=== PATIENT | female | born 1955 | race Caucasian/White ===

== ENCOUNTER 2020-05-12 10:14 | Emergency (ER) | payer OTHER, SELFPAY ==
--- NOTE | ~2020-05-12 | XR_ITS ---
EXAMINATION: XR chest 1V portable DATE: 05/12/2020 11:29 INDICATION: Shortness of breath. TECHNIQUE: A single frontal view of the chest was obtained. COMPARISON: Chest 2 views 09/22/2008 FINDINGS: There are mild airspace opacities in the mid and lower lung zones. No pleural effusion or p neumothorax. The heart size is normal. IMPRESSION: 1. Mild airspace opacities in the mid and lower lung zones, consistent with pulmonary edema versus pn eumonia. Reviewed, dictated and finalized at location A. IMPRESSION: 1. Mild airspace opacities in the mid and lower lung zones, consistent with pul monary edema versus pneumonia.
[2020-05-12 10:15] VITALS: BP 139/63; PULSE 70; RESP 20; TEMP 37.2; O2SAT 97
--- NOTE | 2020-05-12 10:29 | ED.GENADULT ---
HPI - General Adult General Chief complaint: Weakness <JENNIFER Enrique Last Filed: 05/12/20 12:25> Stated complaint: weakness- covid + <JENNIFER Enrique Last Filed: 05/12/20 12:25> Time Seen by Provider: 05/12/20 10:16 <JENNIFER Enrique Last Filed: 05/12/20 12:25> Source: patient <JENNIFER Enrique Last Filed: 05/12/20 12:25> Mode of arrival: EMS <JENNIFER Enrique Last Filed: 05/12/20 12:25> Limitations: no limitations <JENNIFER Enrique Last Filed: 05/12/20 12:25> History of Present Illness HPI narrative: Patient is a 64-year-old female who presents with positive COVID diagnosis with symptoms of congestion rhinorrhea productive cough of phlegm and diarrhea and vomiting. Patient notes history of depression takes no other medications patient has not been taking anything for her symptoms patient lives at home by herself. Patient know she contacted the illness from her niece who she had dinner with prior Friday. Patient on arrival per EMS is in the room is in no distress does not appear uncomfortable and is mildly ill-appearing. <JENNIFER Enrique Last Filed: 05/12/20 12:25> Related Data Home medications: Home Medications Medication Instructions Recorded Confirmed escitalopram oxalate 10 mg PO DAILY 05/12/20 05/12/20 pantoprazole 40 mg PO DAILY 05/12/20 05/12/20 trazodone 100 mg PO DAILY 05/12/20 05/12/20 <JENNIFER Enrique Last Filed: 05/12/20 12:25> Allergies/adverse reactions: Allergies Allergy/AdvReac Type Severity Reaction Status Date / Time No Known Allergies Allergy Verified 05/12/20 10:43 <JENNIFER Enrique Last Filed: 05/12/20 12:25> Review of Systems Review of Systems: All systems reviewed & are unremarkable except as noted in HPI and below <JENNIFER Enrique Last Filed: 05/12/20 12:25> PMFSH Past Medical History Medical History: Medical History (Updated 05/12/20 @ 12:23 by Forrest Padron PA-C) Depression <Forrest Padron PA-C - Last Filed: 05/12/20 12:25> Social History Social History: Social History Smoking status: Never smoker Alcohol intake: never <Forrest Padron PA-C - Last Filed: 05/12/20 12:25> Exam Narrative: Exam Narrative: GENERAL: Well-appearing, morbidly obese, and in no acute distress. HEAD: Normocephalic, atraumatic. EYES: PERRLA and EOMI. ENT: Nares clear, no rhinorrhea or epistaxis. Mucous membranes moist. Oropharynx without tonsillar hypertrophy exudate or other lesions. NECK: Supple. No adenopathy or masses. CHEST: Clear to auscultation. No respiratory distress. No wheezes rales or rhonchi HEART: Regular rate and rhythm. No murmur heard. Normal peripheral pulses. ABDOMEN: Soft, nontender, nondistended EXTREMITIES: Normal range of motion. No edema. SKIN: Warm, dry, no rash. NEURO: No focal deficits. Alert and oriented x3. PSYCH: Normal mood and affect. <Forrest Padron PA-C - Last Filed: 05/12/20 12:25> Course Course Emergency Course: Patient in the room in no distress aware of case findings treatment plan and diagnosis resting comfortably in the room felt appropriate for outpatient reevaluation patient with normal vital signs no hypoxemia patient aware of discussion with primary care and will follow with primary care patient at this time will be discharged home given reasons to return will be treated symptomatically with follow-up with primary care. Patient was hydrated in the emergency department and given medications <Forrest Padron PA-C - Last Filed: 05/12/20 12:25> Consultations Consultation #1: Spoke with Dr. Lopez who will follow the patient outpatient does not recommend antibiotics and recommends treating the patient symptomatically <JENNIFER Enrique Last Filed: 05/12/20 12:25> Date: 05/12/20 <JESUSITA Enrique
[2020-05-12] MEDS: ONDANSETRON INJ 4 MG/2 ML VIAL IV PUSH (10:45)
[2020-05-12] MEDS: SODIUM CHLORIDE 0.9% IV 1,000 ML 999 ML IV CONT (10:45)
[2020-05-12] MEDS: FAMOTIDINE 20 MG/2 ML VIAL IV PUSH (10:45)
[2020-05-12 10:53] LABS: Basophils Percent Auto 0.3 % (0.2-1.2); Immature Granulocyte Absolute 0.01 K/mm3 (0.00-0.031); Immature Granulocyte Percent A 0.3 % (0-0.5); Lymphocytes Absolute Auto 0.52 K/mm3 (0.9-3.2); Lymphocytes Percent Auto 17.6 % (18.3-44.2); Mean Corpuscular HGB Conc 32.4 g/dl (32-36); Mean Corpuscular Volume 89.4 fl (80-100); Mean Platelet Volume 9.8 fl (7.4-10.4); Monocytes Absolute Auto 0.2 K/mm3 (0.1-0.6); Monocytes Percent Auto 7.4 % (2.6-8.5); Neutrophils Absolute Auto 2.2 K/mm3 (1.3-6.7); Neutrophils Percent Auto 74.4 % (45.5-73.1); Platelet Count Result 112 k/mm3 (150-375); Red Blood Count 4.14 M/mm3 (4.2-5.4)
[2020-05-12 11:02] LABS: Prothrombin Time 13.2 Seconds (11.1-14.7)
[2020-05-12 11:03] LABS: Partial Thromboplastin Time 50.7 SECONDS (22.3-36.8)
[2020-05-12 11:05] LABS: Lactic Acid Reflex 1.8 mmol/L (0.7-2.1)
[2020-05-12 11:07] LABS: Alanine Aminotransferase 27 U/L (4-35); Albumin Level 3.6 g/dL (3.5-5.1); Alkaline Phosphatase 53 U/L (38-126); Anion Gap 9 mmol/L (8-16); Aspartate Amino Transferase 43 U/L (14-36); Bilirubin,Total 0.6 mg/dL (0.2-1.3); Blood Urea Nitrogen 9 mg/dL (7-17); CRP 5.7 mg/dL (<1.0); Calcium 7.9 mg/dL (8.4-10.2); Carbon Dioxide 26 mmol/L (22-30); Chloride 102 mmol/L (98-107); Estimated Glomerular Filt Rate 50; Glucose 125 mg/dL (65-105); Potassium 3.9 mmol/L (3.4-5.0); Sodium 137 mmol/L (137-145)
[2020-05-12 11:33] VITALS: BP 143/69; PULSE 67; RESP 20; O2SAT 96
[2020-05-12 12:21] VITALS: BP 143/63; PULSE 70; RESP 20; O2SAT 96
[2020-05-12 13:29] VITALS: BP 149/56; PULSE 70; RESP 20; O2SAT 97
== END 2020-05-12 13:31 | disposition home or self-care (01) ==
PROVIDERS: Emergency Medicine Emergency Medical Services; Emergency Provider Emergency Medicine; PCP Family Medicine Adolescent Medicine
DX: U07.1 COVID-19 (principal); F32.9 Major depressive disorder, single episode, unspecified
CPT/HCPCS: 36415; 71045; 80053; 83605; 85025; 85610; 85730; 86140; 87040; 96361; 96374; 96375; 99284; J2405; J7030

== ENCOUNTER → 2020-08-17 13:45 | Outpatient (CLI) | payer MEDICARE, SELFPAY ==
--- NOTE | ~2020-08-17 | MM_ITS ---
EXAMINATION: MM screening [facility] BI w jeny HISTORY: Screening mammogram TECHNIQUE: Craniocaudal and mediolateral oblique 3-D tomosynthesis images were obtained and synthetic 2-D images were generated. CAD analysis was submitted and interpreted. COMPARISON: 05/24/2017, 11/02/2012, 10/21/2011 BREAST PARENCHYMAL COMPOSITION: The breasts are almost entirely fatty. FINDINGS: There is no evidence of suspicious mass, calcification, or architectural distortion to sugg est malignancy in either breast. There has been no suspicious interval change. IMPRESSION: 1. No mammographic evidence of malignancy. 2. Recommend routine screening mammography in one year. BI-RADS Category 1: Negative Reviewed, dictated and finalized at location A. 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
== END ==
PROVIDERS: PCP Family Medicine Adolescent Medicine; Visit Provider Family Medicine Adolescent Medicine
DX: Z12.31 Encounter for screening mammogram for malignant neoplasm of breast (principal)
CPT/HCPCS: 77063; 77067

== ENCOUNTER → 2020-12-28 10:03 | Outpatient (CLI) | payer MEDICARE, SELFPAY ==
--- NOTE | ~2020-12-28 | XR_ITS ---
XR chest 2V DATE: 12/28/2020 11:18 INDICATION: Shortness of breath TECHNIQUE: 2 views COMPARISON: 05/12/2020 portable AP chest FINDINGS: Normal heart size. No hilar or mediastinal enlargement. Aortic arch calcification. No pulmonary infiltrate or consolidation, pleural effusion or pulmonary vascular congestion or pneumo thorax. Diffuse osteopenia. IMPRESSION: No active cardiopulmonary disease Reviewed, dictated and finalized at location B.
== END ==
PROVIDERS: Visit Provider Physician Assistant
DX: R06.02 Shortness of breath (principal)
CPT/HCPCS: 71046

== ENCOUNTER 2021-01-31 12:31 | Outpatient (CLI) | payer MEDICARE, SELFPAY ==
--- NOTE | 2021-01-31 16:13 | P.PCNPFT_ITS ---
PFT Procedure Performed PFT Procedure Performed Spirometry with Pre/Post Bronchodilator Plethysmography (Lung Vol) Diffusing Cap (DLCO) Flow Vol Loop PFT Interpretation This is a pulmonary function test with pre and post-bronchodilator spirometry, plethysmography and diffusing capacity. The test was performed and results interpreted in accordance with the 2019 and 2005 ATS/ERS Task Force guidelines respectively using the Global Lung Function Initiative-2012 reference equations. Patient demonstrated good effort and cooperation. Reproducibility criteria were met. The quality of the pre bronchodilator spirometry maneuver was Grade A and post bronchodilator spirometry maneuver was Grade A. Findings: Spirometry: The contour the inspiratory and expiratory flow tracing are normal. The pre bronchodilator FVC is 2.54 L, 84% predicted. The pre bronchodilator FEV1 is 2.05 L, 87% predicted. The FEV1: FVC ratio was 81%. The post bronchodilator FVC is 2.61 L, representing a 3% increase. The post bronchodilator FEV1 is 2.18 L, representing a 6% increase. Plethysmography: The total lung capacity is 3.52 L, 69% predicted. Functional residual capacity is 1.24 L, 43% predicted. The residual volume is 0.92 L, 44% predicted. Diffusing capacity: The absolute diffusion capacity is 12.2, 58% predicted. T he diffusing capacity corrected for alveolar volume is 3.59, 82% predicted. Impression: There is a mild severe restrictive ventilatory abnormality with a normal FEV1. The spirometry is normal without evidence of an obstructive abnormality. There is no significant improvement after inhaling a single dose of albuterol. The absolute diffusing capacity is moderately decreased and normalizes when corrected for alveolar volume. There are no prior studies for comparison
== END 2021-01-31 12:32 | disposition home or self-care (01) ==
LOC: ANHPFT 12:35
PROVIDERS: Visit Provider Family Medicine Adolescent Medicine
DX: R06.02 Shortness of breath (principal); R94.2 Abnormal results of pulmonary function studies
CPT/HCPCS: 94060; 94726; 94729

== ENCOUNTER → 2021-12-04 12:13 | Outpatient (CLI) | payer MEDICARE, SELFPAY ==
--- NOTE | ~2021-12-04 | MM_ITS ---
EXAMINATION: MM screening [facility] BI w jeny HISTORY: Screening TECHNIQUE: Craniocaudal and mediolateral oblique 3-D tomosynthesis images were obtained and synthetic 2-D images were generated. CAD analysis was submitted and interpreted. COMPARISON: Comparison to multiple prior studies sequentially, with oldest reviewed study dated 11/02. BREAST PARENCHYMAL COMPOSITION: The breasts are almost entirely fatty. FINDINGS: There is no evidence of suspicious mass, calcification, or architectural distortion to sugg est malignancy in either breast. There has been no suspicious interval change. IMPRESSION: 1. No mammographic evidence of malignancy. 2. Recommend routine screening mammography in one year. BI-RADS Category 1: Negative Reviewed, dictated and finalized at location A.
== END ==
PROVIDERS: PCP Family Medicine Adolescent Medicine; Visit Provider Family Medicine Adolescent Medicine
DX: Z12.31 Encounter for screening mammogram for malignant neoplasm of breast (principal)
CPT/HCPCS: 77063; 77067

== ENCOUNTER → 2023-02-28 15:58 | Outpatient (CLI) | payer MEDICARE, SELFPAY ==
--- NOTE | ~2023-02-28 | MM_ITS ---
EXAMINATION: MM screening [facility] BI w jeny HISTORY: Screening TECHNIQUE: Craniocaudal and mediolateral oblique 3-D tomosynthesis images were obtained and synthetic 2-D images were generated. CAD analysis was submitted and interpreted. COMPARISON: Comparison to multiple prior studies sequentially, with oldest reviewed study dated 05/11. BREAST PARENCHYMAL COMPOSITION: The breasts are almost entirely fatty. FINDINGS: There is no evidence of suspicious mass, calcification, or architectural distortion to sugg est malignancy in either breast. There has been no suspicious interval change. IMPRESSION: 1. No mammographic evidence of malignancy. 2. Recommend routine screening mammography in one year. BI-RADS Category 1: Negative Reviewed, dictated and finalized at location A.
== END ==
PROVIDERS: PCP Family Medicine Adolescent Medicine; Visit Provider Family Medicine Adolescent Medicine
DX: Z12.31 Encounter for screening mammogram for malignant neoplasm of breast (principal)
CPT/HCPCS: 77063; 77067

== ENCOUNTER 2024-03-02 10:16 | Outpatient (CLI) | payer MEDICARE, SELFPAY ==
--- NOTE | ~2024-03-02 | MM_ITS ---
EXAMINATION: MM screening [facility] BI w jeny HISTORY: Screening TECHNIQUE: Craniocaudal and mediolateral oblique 3-D tomosynthesis images were obtained and synthetic 2-D images were generated. CAD analysis was submitted and interpreted. COMPARISON: Comparison to multiple prior studies sequentially, with oldest reviewed study dated 05/11. BREAST PARENCHYMAL COMPOSITION: Not Dense. The breasts are almost entirely fatty. FINDINGS: There is no evidence of suspicious mass, calcification, or architectural distortion to sugg est malignancy in either breast. There has been no suspicious interval change. IMPRESSION: 1. No mammographic evidence of malignancy. 2. Recommend routine screening mammography in one year. BI-RADS Category 1: Negative Reviewed, dictated and finalized at location B.
== END 2024-03-02 10:17 ==
LOC: MICIMG 10:17
PROVIDERS: PCP Family Medicine Adolescent Medicine; Visit Provider Family Medicine Adolescent Medicine
DX: Z12.31 Encounter for screening mammogram for malignant neoplasm of breast (principal)
CPT/HCPCS: 77063; 77067

== ENCOUNTER 2025-02-15 15:01 | Outpatient (CLI) | payer MEDICARE, SELFPAY ==
--- NOTE | ~2025-02-15 | DEXA_ITS ---
Bone Density Report Name: JAILENE HODGE Age: 69 Sex: Female Ethnicity: White Date of : 1955 Indication: postmenopausal; screening for osteoporosis; height loss; prior fracture; Referring Provider: DRAKE ANN Study: Bone densitometry was performed. Exam Date: February 15, 2025 Accession number: [id number] Bone Density: Region BMD T-score Z-score Classification AP Spine(L1-L4) 0.809 -2.2 -0.1 Osteopenia Femoral Neck (Left) 0.556 -2.6 -0.9 Osteoporosis Total Hip (Left) 0.734 -1.7 -0.2 Osteopenia Femoral Neck (Right) 0.537 -2.8 -1.0 Osteoporosis Total Hip (Right) 0.724 -1.8 -0.3 Osteopenia Total Hip Mean 0.729 -1.8 -0.3 Osteopenia World Health Organization criteria for BMD impression classify patients as: Normal (T-score at or above -1.0), Osteopenia (T-score between -1.0 and -2.5), or Osteoporosis (T-score at or below -2.5). 10-year Fracture Risk: FRAX not reported because: Some T-score for Spine Total or Hip Total or Femoral Neck at or below -2.5 Clinical Information Provided by Patient: Has had a low trauma fracture Has used the following medications: Vitamin D, Calcium Patient maximum height was 64 Menopause Age: 40 Does not regularly consume dairy products Drinks caffeinated beverages Onset of menses at age 16 Number of children 0 Missed period for more than 6 months in a row Impression: The patient has established osteoporosis, based on the Right Femoral Neck T-score and the existence of a prior fracture. The patient has risk factors, including: previous fracture. Discussion: HIGH RISK OF FRACTURE. BONE DENSITY IS UNDESIRABLY LOW AT ONE OR MORE SKELETAL SITES, CONSISTENT WITH POSTMENOPAUSAL OSTEOPOROSIS. This patient's lowest T-score, in a patient who has previously fractured, meets the World Health Organization's (WHO) criteria for severe osteoporosis. In untreated patients, the risk of osteoporotic fracture increases approximately two-fold for each 1.0 SD decrease in T-score. Low bone density is not the only risk factor for fracture; also consider factors such as patient's age, frailty or poor health, risk of falling, risk of injury, previous osteoporotic fracture, family history of osteoporosis, cigarette smoking, low body weight, etc. Not everyone with low bone mineral density has osteoporosis; osteomalacia and other metabolic bone disorders should also be considered. Patients who have osteoporosis should be evaluated for specific diseases and conditions (secondary causes) that may cause or contribute to bone loss. The [place] Association [employer] Endocrinologists (AACE) and National Osteoporosis Foundation (NOF) recommend pharmacologic intervention for all postmenopausal women whose T-score is in this range. The patient should follow a healthful lifestyle (good nutrition with adequate calcium and vitamin D, and appropriate weight-bearing exercise). Follow-Up: Consider a repeat BMD and Vertebral Fracture Assessment (VFA) exam in 2 years or sooner if medically necessary, to reassess this patient's status. Reported by: SARAH on 02/15/2025 3:35:00 PM. Reviewed, dictated and finalized at location A.
== END 2025-02-15 15:02 | disposition home or self-care (01) ==
LOC: MICIMG 15:03
PROVIDERS: PCP Family Medicine Adolescent Medicine; Visit Provider Family Medicine Adolescent Medicine
DX: Z78.0 Asymptomatic menopausal state (principal); M85.88 Other specified disorders of bone density and structure, other site; M81.0 Age-related osteoporosis without current pathological fracture; M85.852 Other specified disorders of bone density and structure, left thigh; M85.851 Other specified disorders of bone density and structure, right thigh
CPT/HCPCS: 77080

== ENCOUNTER 2025-03-03 14:17 | Outpatient (CLI) | payer MEDICARE, SELFPAY ==
--- NOTE | ~2025-03-03 | MM_ITS ---
EXAMINATION: MM screening [facility] BI w jeny HISTORY: Screening TECHNIQUE: Craniocaudal and mediolateral oblique 3-D tomosynthesis images were obtained and synthetic 2-D images were generated. CAD analysis was submitted and interpreted. COMPARISON: Comparison to multiple prior studies sequentially, with oldest reviewed study dated 2020. BREAST PARENCHYMAL COMPOSITION: The breasts are almost entirely fatty. FINDINGS: There is no evidence of suspicious mass, calcification, or architectural distortion to sug gest malignancy in either breast. Radiopaque auditor medical claims overlies and partially obscures the media l left breast. IMPRESSION: 1. No mammographic evidence of malignancy. 2. Recommend routine screening mammography in one year. BI-RADS Category 1: Negative Reviewed, dictated and finalized at location B.
== END 2025-03-03 14:18 | disposition home or self-care (01) ==
LOC: MICIMG 14:20
PROVIDERS: PCP Family Medicine Adolescent Medicine; Visit Provider Family Medicine Adolescent Medicine
DX: Z12.31 Encounter for screening mammogram for malignant neoplasm of breast (principal)
CPT/HCPCS: 77063; 77067